=== PATIENT | female | born 2000 | race African-American/Black ===

== ENCOUNTER → 2023-07-18 | Outpatient (CLI) | payer OTHER ==
[2023-07-19 07:06] LABS: MUMPS VIRUS IGG ANTIBODY <9.0 AU/mL (Immune >10.9); VARICELLA ZOSTER IGG AB TITER <135 index (Immune >165)
== END | disposition home or self-care (01) ==
LOC: LABMN 10:41
PROVIDERS: ATTEND Internal Medicine
DX: Z02.1 Encounter for pre-employment examination (principal)
CPT/HCPCS: 86706; 86735; 86762; 86765; 86787